=== PATIENT | male | born 1995 | race Caucasian/White ===

== ENCOUNTER 2022-01-18 09:57 | Emergency (ER) | payer OTHER, SELFPAY ==
[2022-01-18 09:58] VITALS: BP 165/104; PULSE 87; RESP 16; TEMP 36.6; O2SAT 100; BMI 34.9
--- NOTE | 2022-01-18 10:05 | EDS_ITS ---
HPI <Dr. Zeina Burns MD - Last Filed: 01/18/22 11:25> History of Present Illness Chief Complaint: Flank Pain <JULIA RIZZO - Last Filed: 01/18/22 11:22> History of Present Illness Detail of Chief Complaint: Left flank pain Informant: patient Onset/Context/Timing Onset: Today Context: Sudden Onset Timing: Continuous Quality: Stabbing knife sensation Current Severity: 6/10 Relieved by: Movement Narrative Narrative: Patient presents secondary to left flank pain that began at 6:45 this morning when he awoke. Patient describes pain as dull stabbing knife with occasional sharp shooting pain. Patient states no prior similar symptoms. Patient has Lidoderm patch on currently, and patient has taken Esdras back and body at 8 AM this morning. Patient denies relief from this. Patient states he last urinated this morning, without change in urine color, dysuria, frequency. Patient states last bowel movement yesterday. Patient denies any recent illness. Patient states pain somewhat improved with movement. Prior similar symptoms: No Recent Illness/Hospitalization: No PFSH <Dr. Zeina Burns MD - Last Filed: 01/18/22 11:25> PFSH Medical History (Updated 01/18/22 @ 11:[address] Zeina Burns MD) Kidney stone Medical History no medical history Home Medications hydrocodone-acetaminophen 1 tab PO Q6H PRN 3 Days #10 tab 01/18/22 [Rx Last Taken Unknown] naproxen [Naprosyn] 500 mg PO BID PRN #20 tab 01/18/22 [Rx Last Taken Unknown] ondansetron 4 mg PO Q8H PRN #10 tab 01/18/22 [Rx Last Taken Unknown] Allergy/AdvReac Type Severity Reaction Status Date / Time No Known Allergies Allergy Verified 01/18/22 10:00 Surgical History History of excision of pilonidal cyst Social History (Updated 01/18/22 @ 10:26 by JULIA RIZZO) Smoking Status: Former smoker alcohol intake: current alcohol intake frequency: holidays/special occasions only substance use type: does not use <JULIA RIZZO - Last Filed: 01/18/22 11:22> PFSH no medical history <JULIA RIZZO - Last Filed: 01/18/22 11:22> ROS ED Constitutional Constitutional ED: Denies chills or fever(s) Eyes Eyes: Denies blurry vision, change in vision or diplopia ENT ENT ED: Denies rhinorrhea or sore throat Cardiovascular Cardiovascular: Denies chest pain or palpitations Respiratory/Chest Respiratory/Chest: Denies cough, dyspnea or dyspnea on exertion Gastrointestinal Gastrointestinal: Reports abdominal pain; Denies constipation, diarrhea, nausea or vomiting Genitourinary Genitourinary ED: Reports as per HPI and flank pain Musculoskeletal Musculoskeletal: Denies myalgias Integumentary Denies rash Neurologic Neurologic: Denies headache(s) or weakness Psychiatric Psychiatric: Denies anxiety or depression Endocrine Endocrinology: Denies polyuria EXAM <Dr. Zeina Burns MD - Last Filed: 01/18/22 11:25> Physical Exam Const Vital Signs: 01/18/22 09:58 Temperature 97.9 F Temperature Source Temporal Pulse Rate 87 Respiratory Rate 16 Blood Pressure 165/104 H Blood Pressure Mean 124 Pulse Ox 100 Oxygen Delivery Method Room Air < SO - Last Filed: 01/18/22 11:22> Physical Exam Const Vital Signs: 01/18/22 09:58 Temperature 97.9 F Temperature Source Temporal Pulse Rate 87 Respiratory Rate 16 Blood Pressure 165/104 H Blood Pressure Mean 124 Pulse Ox 100 Oxygen Delivery Method Room Air Positive well nourished and well developed General Appearance ED: well developed HEENT Reports moist mucous membranes Eyes PERRL and EOMs intact bilaterally Neck no lymphadenopathy and supple Resp normal respiratory effort and clear to auscultation bilaterally Cardio regular rate and regular rhythm GI normal to inspection, nondistended, normoactive bowel sounds Back/Spine no CVA tenderness Extremity normal to inspection General Extremety ED: Negative for edema General Extremity: Negative for edema Neuro oriented x3 Sensorium / Orientation: alert Psych mental status grossly normal Skin No no rashes or lesions noted MDM <Dr. Zeina Burns MD - Last Filed: 01/18/22 11:25> [facility] Lab Data Labs: Laboratory Results - last 24 hr 01/18/22 01/18/22 01/18/22 10:23 10:25 10:25 WBC 10.7 RBC 5.30 Hgb 16.0 Hct 45.5 MCV 85.8 MCH 30.2 MCHC 35.2 RDW Std Deviation 37.8 RDW Coeff of [place] 12.0 Plt Count 270 MPV 9.7 Immature Gran % (Auto) 0.700 Neut % (Auto) 80.3 H Lymph % (Auto) 12.9 L [place] % (Auto) 5.2 Eos % (Auto) 0.3 Baso % (Auto) 0.6 Absolute Neuts (auto) 8.6 H Absolute Lymphs (auto) 1.38 Nucleated RBC % 0 Sodium 139 Potassium 3.9 Chloride 109 H Carbon Dioxide 26.0 Anion Gap 4 L BUN 14 Creatinine 1.09 Estim Creat Clear Calc 120.59 Est GFR (MDRD) Af Amer 103 Est GFR (MDRD) Non-Af 85 BUN/Creatinine Ratio 12.8 Glucose 116 H Calcium 9.5 Urine Color Yellow Urine Clarity Sl. Cloudy Urine pH 7.0 Ur Specific [place] 1.010 Urine Protein 30 H Urine Glucose (UA) Normal Urine Ketones 5 H Urine Occult Blood 250 H Urine Nitrite Negative Urine Bilirubin Negative Urine Urobilinogen 1 H Ur Leukocyte Esterase 25 H Urine RBC > 100 SEEN Urine WBC 0 SEEN Ur Squamous Epith Cells 0 SEEN Urine Bacteria 0 SEEN Urine Mucus 0 SEEN Radiography Diagnostic Testing: Clinical Impression(s) from Imaging Studies Abdomen/Pelvis CT 01/18/22 10:14 IMPRESSION: Punctate 1 to 2 mm calcification in the distal left ureter causing mild left hydronephrosis and hydroureter with minimal amount of periureteral inflammatory stranding No free intraperitoneal fluid, air, or suspicious adenopathy, normal appendix visualized Electronically Signed: John Stubbs MD at 11:11 EST Reading Location ID and State: [facility] / [place] , Service support , Treatment and Re-Evaluation Narrative: Patient seen and evaluated with [employer] student. I personally interviewed and examined the patient. I was involved in all aspects of decision making and treatment. Patient presents with left flank pain that started at 645 this morning upon waking. He felt well when he went to bed last evening. He had mild nausea this morning with pain. No dysuria or hematuria. No known history of kidney stone. Denies any recent back injury. Patient sitting upright in bed no acute distress. Head and neck examination unremarkable. Heart is regular rate and rhythm. Lung sounds are clear. Abdomen is soft and nontender. Hypoactive bowel sounds noted. Back examination reveals no CVA tenderness. Lab work obtained and largely unremarkable. Renal function normal. Urinalysis does reveal blood with no sign of infection. CT flank reveals a 1 to 2 mm left distal ureter stone. After analgesics patient's pain is significantly improved. Test results discussed with him as well as anticipated course. He is given prescriptions for [place], Naprosyn, Zofran. He is encouraged to increase p.o. fluids and follow-up with urology if not improving. Return instructions provided. <JULIA RIZZO - Last Filed: 01/18/22 11:22> MDM MDM Narrative Medical decision making narrative: CBC, BMP, urinalysis, and non-contrast abdomen pelvis CT obtained. Patient treated for pain with morphine and Toradol, also given Zofran. Lab Data Attestation: I reviewed the patient's lab results. Labs: Laboratory Results - last 24 hr 01/18/22 01/18/22 01/18/22 10:23 10:25 10:25 WBC 10.7 RBC 5.30 Hgb 16.0 Hct 45.5 MCV 85.8 MCH 30.2 MCHC 35.2 RDW Std Deviation 37.8 RDW Coeff of [place] 12.0 Plt Count 270 MPV 9.7 Immature Gran % (Auto) 0.700 Neut % (Auto) 80.3 H Lymph % (Auto) 12.9 L [place] % (Auto) 5.2 Eos % (Auto) 0.3 Baso % (Auto) 0.6 Absolute Neuts (auto) 8.6 H Absolute Lymphs (auto) 1.38 Nucleated RBC % 0 Sodium 139 Potassium 3.9 Chloride 109 H Carbon Dioxide 26.0 Anion Gap 4 L BUN 14 Creatinine 1.09 Estim Creat Clear Calc 120.59 Est GFR (MDRD) Af Amer 103 Est GFR (MDRD) Non-Af 85 BUN/Creatinine Ratio 12.8 Glucose 116 H Calcium 9.5 Urine Color Yellow Urine Clarity Sl. Cloudy Urine pH 7.0 Ur Specific [place] 1.010 Urine Protein 30 H Urine Glucose (UA) Normal Urine Ketones 5 H Urine Occult Blood 250 H Urine Nitrite Negative Urine Bilirubin Negative Urine Urobilinogen 1 H Ur Leukocyte Esterase 25 H Urine RBC > 100 SEEN Urine WBC 0 SEEN Ur Squamous Epith Cells 0 SEEN Urine Bacteria 0 SEEN Urine Mucus 0 SEEN Radiography Diagnostic Testing: Clinical Impression(s) from Imaging Studies Abdomen/Pelvis CT 01/18/22 10:14 IMPRESSION: Punctate 1 to 2 mm calcification in the distal left ureter causing mild left hydronephrosis and hydroureter with minimal amount of periureteral inflammatory stranding No free intraperitoneal fluid, air, or suspicious adenopathy, normal appendix visualized Electronically Signed: John Stubbs MD at 11:11 EST , Treatment and Re-Evaluation Narrative: CBC and BMP unremarkable. Urinalysis positive for blood with no sign of infection. CT demonstrates 1 to 2 mm calcification in the distal left ureter. On reevaluation, patient states pain is 4 out of 10 and continuing to decrease, and appears more comfortable. Patient will be given prescriptions for pain control for home. Patient aware to increase hydration and follow-up with urology if needed. Discharge Plan Triage Chief Complaint: Flank Pain Other Complaint: Abd Pain ED Provider: Zeina Burns Dx/Rx/DC Orders Clinical Impression: Kidney stone Instructions: ED Kidney Stone w/ Colic Prescriptions: New naproxen [Naprosyn] 500 mg tablet 500 mg PO BID PRN (Reason: pain) Qty: 20 RF: 0 ondansetron 4 mg tablet,disintegrating 4 mg PO Q8H PRN (Reason: nausea and vomiting) Qty: 10 RF: 0 hydrocodone-acetaminophen 5-325 mg tablet 1 tab PO Q6H PRN (Reason: pain) 3 Days Qty: 10 RF: 0 Stand Alone Forms: ED Work / School Excuse Primary Care Provider: Care Physician,No Primary Referrals: Wayne Tilley MD [STAFF PHYSICIAN] - As Needed Care Physician,No Primary [Primary Care Provider] - Disposition Disposition: Home, Self Care
--- NOTE | 2022-01-18 10:14 | CT_ITS ---
STUDY: CT ABDOMEN AND PELVIS WITHOUT CONTRAST REASON FOR EXAM: Male, 26 years old. lt flank pain RADIATION DOSAGE (If Supplied By Facility): CTDIvol = ( 22.22 ) mGy, DLP = ( 1288.21 ) mGycm TECHNIQUE: Transaxial images were obtained from the dome of the diaphragm to the symphysis pubis without oral contrast, and without intravenous contrast. Sagittal and coronal images were reconstructed. Individualized dose optimization techniques were used for this CT. COMPARISON: None. FINDINGS: The visualized lung bases are unremarkable. The visualized portions of the heart are within normal limits. Normal liver. Normal gallbladder and extrahepatic biliary system. Normal spleen. Normal pancreas. Normal bilateral adrenal glands. Normal right kidney. Left kidney shows mild hydronephrosis and hydroureter. There is a minimal amount of periureteral inflammatory stranding. Findings due to a 1 to 2 mm stone seen on axial image 174, and coronal recon image 81. Normal visualized stomach. Normal small intestine. Normal colon. The appendix is visualized and appears normal. Appendix seen on coronal recon images 58-67 Normal abdominal aorta. Normal inferior vena cava. Normal retroperitoneum. Normal urinary bladder. Normal abdominal wall. Normal osseous structures. CT/Abdomen/Pelvis without Cont IMPRESSION: Punctate 1 to 2 mm calcification in the distal left ureter causing mild left hydronephrosis and hydroureter with minimal amount of periureteral inflammatory stranding No free intraperitoneal fluid, air, or suspicious adenopathy, normal appendix visualized Electronically Signed: John Stubbs MD at 11:11 EST ,
[2022-01-18] MEDS: 0.9% Normal Saline 1,000 ML 250 ML IV (10:29)
[2022-01-18] MEDS: Morphine 4 MG/ML Syringe IV (10:29)
[2022-01-18] MEDS: Ketorolac 30 MG/ML Syringe IV (10:29)
[2022-01-18] MEDS: Ondansetron 4 MG/2 ML Vial IV (10:29)
[2022-01-18 10:40] LABS: Bacteria 0 SEEN /hpf (None Seen); Mucous, Urine 0 SEEN /hpf (<or=2+); Squamous Epithelial Cells - UA 0 SEEN /hpf (0-5); White Blood Cells 0 SEEN /hpf (0-5)
[2022-01-18 10:42] LABS: Absolute Lymphocyte Count 1.38 X10^3/uL (0.83-4.51); Absolute Neutrophil Count 8.6 X10^3/uL (2.0-7.7); Basophil# 0.06 X10^3/uL; Basophil% 0.6 % (0-1); Eosinophil# 0.03 X10^3/uL; Eosinophils% 0.3 % (0-5); Hematocrit 45.5 % (40-54); Lymphocyte # 1.38 X10^3/ul (0.83-4.51); Lymphocyte % 12.9 % (19-41); Mean Corp Hgb Conc 35.2 g/dL (32-36); Mean Corpuscular Hgb 30.2 pg (27.0-32.0); Mean Corpuscular Volume 85.8 fL (80-94); Mean Platelet Vol. 9.7 fl (6.2-12.0); Monocyte# 0.56 X10^3/uL; Monocyte% 5.2 % (0-10); NRBC Flagged by Analyzer 0 % (0-5); Neutrophil # 8.58 X10^3/uL (2.7-7.7); Neutrophil % 80.3 % (47-70); Platelet Count 270 K/mm3 (150-450); RBC Distribution Width SD 37.8 fl (35.1-43.9); White Blood Count 10.7 K/mm3 (4.4-11.0)
[2022-01-18 10:42] LABS: Color, Urine Yellow (Yellow); Glucose, Dipstick Normal (Normal); Ketone-Dipstick 5 mg/dl (Negative); Leukocyte Esterase-Dipstick 25 /ul (Negative); Nitrite-Dipstick Negative (Negative); Occult Blood-Urine 250 /ul (Negative); Protein-Dipstick 30 mg/dl (Negative); Urine Bilirubin Dipstick Negative (Negative); Urine Clarity Sl. Cloudy (Clear); Urine Urobilinogen 1 mg/dl (Normal)
[2022-01-18 10:50] LABS: Red Blood Cells-Urine > 100 SEEN /hpf (0-5)
[2022-01-18 10:58] LABS: Anion Gap 4 (5-15); BUN 14 mg/dL (7-18); BUN/Creat Ratio 12.8 RATIO (10-20); Calcium,Total 9.5 mg/dL (8.5-10.1); Chloride 109 mmol/L (98-107); Creatinine, Serum 1.09 mg/dL (0.70-1.30); EST Glomerular Filtration Rate 85 mL/min (>60); Est Glom Filt Rate - Afr Amer 103 mL/min (>60); Estimated Creatinine Clearance 120.59 ml/min; Glucose 116 mg/dL (74-106); Potassium 3.9 mmol/L (3.5-5.1); Sodium Level 139 mmol/L (136-145)
== END 2022-01-18 11:26 | disposition home or self-care (01) ==
PROVIDERS: Emergency Provider Emergency Medicine; Visit Provider Emergency Medicine
DX: N20.0 Calculus of kidney (principal); Z87.891 Personal history of nicotine dependence
CPT/HCPCS: 74176; 80048; 81001; 85025; 96374; 96375; 99282; J7030; A4216; J2405

== ENCOUNTER 2024-07-20 08:20 | Observation (INO) | payer OTHER, SELFPAY ==
[2024-07-20 08:20] VITALS: BP 196/114; PULSE 92; RESP 16; TEMP 36.2; O2SAT 100; BMI 40.8
--- NOTE | 2024-07-20 08:36 | CT_ITS ---
STUDY: CT ABDOMEN AND PELVIS WITHOUT CONTRAST REASON FOR EXAM: Male, 28 years old. Flank pain RADIATION DOSAGE (If Supplied By Facility): CTDIvol = ( 23.94 ) mGy, DLP = ( 1411.89 ) mGycm TECHNIQUE: Transaxial images were obtained from the dome of the diaphragm to the symphysis pubis without oral contrast, and without intravenous contrast. Sagittal and coronal images were reconstructed. Individualized dose optimization techniques were used for this CT. COMPARISON: 01/18/2022 FINDINGS: The visualized lung bases are unremarkable. The visualized portions of the heart are within normal limits. There is decreased attenuation of the liver consistent with steatosis. Normal gallbladder and extrahepatic biliary system. Normal spleen. Normal pancreas. Normal bilateral adrenal glands. Normal left kidney. Right kidney shows hydronephrosis and hydroureter with perinephric and periureteral inflammatory stranding. There is a 2 mm stone noted in the distal right ureter on axial image 179 series 2 and coronal reconstructed image 90 likely responsible for the above findings. Neither kidney shows a suspicious solid renal lesion. Normal visualized stomach. Normal small intestine. Normal colon. The appendix is visualized and appears normal. Appendix seen on coronal recon images 57 through 70. Normal abdominal aorta. Normal inferior vena cava. Normal retroperitoneum. Normal urinary bladder. Normal abdominal wall. Normal osseous structures. CT/Abdomen/Pelvis without Cont IMPRESSION: 2 mm calcification in the distal right ureter likely causing right hydronephrosis and hydroureter with perinephric and periureteral inflammatory stranding. Fatty liver, no discrete lesion No free intraperitoneal fluid, air, or suspicious adenopathy, normal appendix visualized Electronically Signed: John Stubbs MD at 9:39 EDT ,
[2024-07-20] MEDS: Ondansetron 4 MG/2 ML Vial IV (08:42)
[2024-07-20] MEDS: Morphine 4 MG/ML Syringe IV (08:42)
[2024-07-20] MEDS: Ketorolac 15 MG/ML Vial IV ×2 (08:43→12:02)
[2024-07-20] MEDS: 0.9% Normal Saline (1000mL) 1,000 ML 250 ML IV (08:46)
[2024-07-20 09:10] LABS: Anion Gap 6 (5-15); BUN 12 mg/dL (7-18); BUN/Creat Ratio 11.5 RATIO (10-20); Calcium,Total 9.6 mg/dL (8.5-10.1); Chloride 110 mmol/L (98-107); Creatinine, Serum 1.04 mg/dL (0.70-1.30); EST Glomerular Filtration Rate 89 mL/min (>60); Est Glom Filt Rate - Afr Amer 107 mL/min (>60); Estimated Creatinine Clearance 161.72 ml/min; Glucose 134 mg/dL (74-106); Potassium 3.9 mmol/L (3.5-5.1); Sodium Level 139 mmol/L (136-145)
--- NOTE | 2024-07-20 09:10 | EX.ED.DYSGE1 ---
HPI History of Present Illness Chief Complaint: Flank Pain Detail of Chief Complaint: Acute right flank pain Informant: patient Onset/Context/Timing Onset: Today Context: Sudden Onset Timing: Continuous and Waxes and wanes Quality: Colicky severe right flank pain Location: Right Current Severity: Severe Maximum Severity: Severe Worsened by: Nothing Relieved by: Nothing Associated Symptoms Associated Symptoms: Diaphoresis, nausea and vomiting Narrative Narrative: Patient is a 28-year-old male. He has a remote history of prior ureterolithiasis. He presents with abrupt onset of right flank pain. He denies history of hypertension. He denies fever, chills night sweats. He denies respiratory or cardiac symptoms. He does endorse nausea and vomiting x 2. There is no blood or coffee-ground emesis. Patient denies dysuria, frequency, urgency or hematuria. Patient denies pain radiating anteriorly or to the groin. He denies any scrotal pain. Prior similar symptoms: Yes (Prior stone) Recent Illness/Hospitalization: No PFSH [facility] Medical History Kidney stone Home Medications ?Medication ?Instructions ?Recorded ?Last Taken ?Type ikiivemjizwph-ofdghtaukooqe-hnpslywwszs 2 tab PO Q6H 07/20/24 07/19/24 History 5 mg-325 mg-200 mg tablet (Cold Head Congestion Severe Daytime) Allergy/AdvReac Type Severity Reaction Status Date / Time No Known Allergies Allergy Verified 07/20/24 08:22 Surgical History History of excision of pilonidal cyst Social History (Updated 07/20/24 @ 09:[address] Henry Bojorquez MD) household members: spouse Smoking Status: Former smoker alcohol intake: current alcohol intake frequency: holidays/special occasions only substance use type: does not use ROS ROS ED Constitutional Constitutional ED: Denies chills, fever(s) or subjective Cardiovascular Cardiovascular: Denies chest pain, palpitations or racing heartbeat Respiratory/Chest Respiratory/Chest: Denies cough, dyspnea or dyspnea on exertion Gastrointestinal Gastrointestinal: Reports nausea and vomiting; Denies abdominal pain or diarrhea Genitourinary Genitourinary ED: Denies dysuria, hematuria or urinary frequency Musculoskeletal Musculoskeletal: Reports back pain; Denies arthralgias, myalgias or neck pain Integumentary Denies rash Hematologic/Lymphatic Hematologic/Lymphatic: Reports systems reviewed and no addt'l complaints, except as documented EXAM Physical Exam Const Vital Signs: 07/20/24 08:20 07/20/24 09:33 Temperature 97.1 F L Temperature Source Temporal Pulse Rate 92 Respiratory Rate 16 Blood Pressure 196/114 H 167/92 H Blood Pressure Mean 141 117 Pulse Ox 100 Oxygen Delivery Method Room Air Positive well nourished and well developed Constitutional Narrative: Patient is obvious discomfort. He is diaphoretic and pacing in the room. General Appearance ED: well developed; Negative for NAD or pallor HEENT Reports moist mucous membranes HEENT Narrative: Head is atraumatic normocephalic. Ears normal. Nares patent. Eyes PERRL and EOMs intact bilaterally General Eye ED: Negative for pale conjunctiva or scleral icterus Neck no lymphadenopathy, supple and no JVD Resp normal respiratory effort and clear to auscultation bilaterally Cardio regular rate, regular rhythm, S1 normal heart sound, S2 normal heart sound and no murmurs GI normal to inspection, nondistended, normoactive bowel sounds, non-tender, non-distended and no masses; Negative for hepatosplenomegaly Back/Spine General Back: CVA tenderness right Extremity normal to inspection Neuro oriented x3 and CN's II-XII intact bilaterally Sensorium / Orientation: alert Psych mental status grossly normal Skin no rashes or lesions noted, no wounds and skin turgor normal General Skin Exam: elasticity normal; Negative for jaundice or pallor MDM MDM MDM Narrative Medical decision making narrative: Differential diagnosis would include biliary disease, flank pain of unknown etiology, pyelonephritis, obstructing ureteral stone and atypical presentation for abdominal aortic aneurysm or dissection. Workup included appropriate labs, UA and CT of the abdomen pelvis without contrast. Patient was medicated with ketorolac, morphine and Zofran for his nausea and vomiting. History & Record Review Additional record(s) reviewed:: Prior ED visit (Last seen in the emergency room 2014 for scalp wound.) Lab Data Labs: Laboratory Results - last 24 hr 07/20/24 07/20/24 08:50 10:25 WBC 8.4 RBC 4.99 Hgb 14.5 Hct 42.3 MCV 84.8 MCH 29.1 MCHC 34.3 RDW Std Deviation 37.9 RDW Coeff of [place] 12.4 Plt Count 236 MPV 10.0 Immature Gran % (Auto) 0.700 Neut % (Auto) 64.7 Lymph % (Auto) 22.8 [place] % (Auto) 10.0 Eos % (Auto) 1.1 Baso % (Auto) 0.7 Absolute Neuts (auto) 5.4 Absolute Lymphs (auto) 1.91 Nucleated RBC % 0 Sodium 139 Potassium 3.9 Chloride 110 H Carbon Dioxide 23.0 Anion Gap 6 BUN 12 Creatinine 1.04 Estim Creat Clear Calc 161.72 Est GFR (MDRD) Af Amer 107 Est GFR (MDRD) Non-Af 89 BUN/Creatinine Ratio 11.5 Glucose 134 H Calcium 9.6 Urine Color Yellow Urine Clarity Clear Urine pH 6.0 Ur Specific [place] 1.020 Urine Protein 30 H Urine Glucose (UA) Normal Urine Ketones 5 H Urine Occult Blood 250 H Urine Nitrite Negative Urine Bilirubin Negative Urine Urobilinogen 1 H Ur Leukocyte Esterase 25 H Urine RBC 25-50 SEEN Urine WBC 0-5 SEEN Ur Squamous Epith Cells 0-5 SEEN Urine Bacteria 1+ Urine Mucus 2+ Radiography Diagnostic Testing: Clinical Impression(s) from Imaging Studies Abdomen/Pelvis CT 07/20/24 08:36 IMPRESSION: 2 mm calcification in the distal right ureter likely causing right hydronephrosis and hydroureter with perinephric and periureteral inflammatory stranding. Fatty liver, no discrete lesion No free intraperitoneal fluid, air, or suspicious adenopathy, normal appendix visualized Electronically Signed: John Stubbs MD at 9:39 EDT Reading Location ID and State: [address] [place] [address] , Service support , Management Discussion w/another healthcare provider: [employer]st (Spoke with urology. Admit to urology service. Floor to call for orders.) Treatment and Re-Evaluation :: Patient was reassessed after he received Dilaudid. States there was no improvement. He was then reassessed at 1020. Pain has improved. He still feels uncomfortable. Will reassess in 30 minutes. To this point patient has received 15 mg of ketorolac, 10 of morphine and 0.5 of Dilaudid. I was informed at 1027 that patient's pain is severe again. Additional Dilaudid was ordered. Dr. Tilley has been paged for admission. Discharge Plan Dx/Rx/DC Orders Clinical Impression: Hydronephrosis with urinary obstruction due to ureteral calculus, Acute right flank pain, Nausea & vomiting, Elevated blood-pressure reading, without diagnosis of hypertension, Hematuria, Asymptomatic bacteriuria Disposition Disposition: Acute Care [facility]
[2024-07-20] MEDS: morphine 8 MG/ML Syringe 6 MG IV (09:21)
[2024-07-20 09:33] VITALS: BP 167/92
[2024-07-20 09:37] LABS: Absolute Lymphocyte Count 1.91 X10^3/uL (0.83-4.51); Absolute Neutrophil Count 5.4 X10^3/uL (2.0-7.7); Basophil# 0.06 X10^3/uL; Basophil% 0.7 % (0-1); Eosinophil# 0.09 X10^3/uL; Eosinophils% 1.1 % (0-5); Hematocrit 42.3 % (40-54); Hemoglobin 14.5 g/dL (13.0-16.5); Lymphocyte # 1.91 X10^3/ul (0.83-4.51); Lymphocyte % 22.8 % (19-41); Mean Corp Hgb Conc 34.3 g/dL (32-36); Mean Corpuscular Hgb 29.1 pg (27.0-32.0); Mean Corpuscular Volume 84.8 fL (80-94); Monocyte# 0.84 X10^3/uL; NRBC Flagged by Analyzer 0 % (0-5); Neutrophil # 5.43 X10^3/uL (2.7-7.7); Neutrophil % 64.7 % (47-70); Platelet Count 236 K/mm3 (150-450); RBC Distribution Width CV 12.4 % (11.6-14.6); RBC Distribution Width SD 37.9 fl (35.1-43.9); Red Blood Count 4.99 M/mm3 (4.6-6.2); White Blood Count 8.4 K/mm3 (4.4-11.0)
[2024-07-20] MEDS: HYDROmorphone 0.5 MG/0.5 ML SYRINGE IV (09:55)
[2024-07-20 10:20] VITALS: BP 131/78; PULSE 64; RESP 18; TEMP 36.6; O2SAT 98
[2024-07-20] MEDS: HYDROmorphone 1 MG/ML Syringe IV (10:32)
[2024-07-20 10:33] LABS: Color, Urine Yellow (Yellow); Glucose, Dipstick Normal (Normal); Ketone-Dipstick 5 mg/dl (Negative); Leukocyte Esterase-Dipstick 25 /ul (Negative); Nitrite-Dipstick Negative (Negative); Occult Blood-Urine 250 /ul (Negative); Protein-Dipstick 30 mg/dl (Negative); Urine Bilirubin Dipstick Negative (Negative); Urine Clarity Clear (Clear); Urine Urobilinogen 1 mg/dl (Normal)
[2024-07-20 10:39] LABS: Bacteria 1+ /hpf (None Seen); Mucous, Urine 2+ /hpf (<or=2+); Red Blood Cells-Urine 25-50 SEEN /hpf (0-5); Squamous Epithelial Cells - UA 0-5 SEEN /hpf (0-5); White Blood Cells 0-5 SEEN /hpf (0-5)
--- NOTE | 2024-07-20 10:43 | HP.PCM_ITS ---
HPI - General General Date of Service: 07/20/24 Chief Complaint: Small distal right ureteral calculi HPI Narrative BHARGAV MABRY, is a 28 M who presents intractable pain. Tiny stone in the distal right ureter ER doctors give the patient many medications the pain can never be resolved his get a tiny stone in distal ureter very likely can a pass is no surgical inventions probably can be necessary will admit the patient for pain control. [facility] Medical History Kidney stone Home Medications ?Medication ?Instructions ?Recorded ?Last Taken ?Type gltqbwgrbjofc-[id number]-[id number] 2 tab PO Q6H 07/20/24 07/19/24 History 5 mg-325 mg-200 mg tablet (Cold Head Congestion Severe Daytime) Allergy/AdvReac Type Severity Reaction Status Date / Time No Known Allergies Allergy Verified 07/20/24 08:22 Surgical History History of excision of pilonidal cyst Social History household members: spouse Smoking Status: Former smoker alcohol intake: current alcohol intake frequency: holidays/special occasions only substance use type: does not use ROS Constitutional Constitutional: Denies chills, fever(s) or malaise Eyes Eyes: Denies blurry vision or change in vision ENT HEENT: Reports none Cardiovascular Cardiovascular: Denies chest pain or palpitations Respiratory/Chest Respiratory/Chest: Denies cough or shortness of breath with exertion Gastrointestinal Gastrointestinal: Denies abdominal pain, constipation or diarrhea Musculoskeletal Musculoskeletal: Denies back pain, joint stiffness or joint swelling Integumentary Integumentary: Denies dry skin, jaundice, lesions or rash Neurologic Neurologic: Denies confusion, syncope or weakness Psychiatric Psychiatric: Reports none; Denies anxiety or depression Endocrine Endocrinology: Denies excessive sweating, fatigue or flushing Hematologic/Lymphatic Hematologic/Lymphatic: Denies anemia, easy bleeding or easy bruising Vital Signs Vital Signs Vital Signs: 07/20/24 08:20 07/20/24 09:33 Temperature 97.1 F L Temperature Source Temporal Pulse Rate 92 Respiratory Rate 16 Blood Pressure 196/114 H 167/92 H Blood Pressure Mean 141 117 Pulse Ox 100 Oxygen Delivery Method Room Air Weight Weight: 148.461 kg Body Mass Index (BMI) 40.8 Physical Exam Const alert and oriented x3 General Appearance: cooperative HEENT normocephalic and head/scalp atraumatic Eyes PERRL and EOMs intact bilaterally Neck supple, no JVD and no carotid bruits Resp normal respiratory effort, normal air movement and clear to auscultation bilaterally Cardio regular rate and no murmurs GI normal to inspection, nondistended, normoactive bowel sounds and soft to palpation Extremity normal capillary refill General Extremity: no tenderness to palpation of joints or extremities; Negative for edema Skin no rashes or lesions noted and no wounds General Skin Exam: no breakdown Neuro CN's II-XII intact bilaterally Psych affect normal Appearance: appropriate Results Medical Records Data Attestation: I reviewed the patient's medical records Lab / Micro Data 07/20/24 08:50 07/20/24 08:50 Labs: Laboratory Results - last 24 hr 07/20/24 08:50: WBC 8.4, RBC 4.99, Hgb 14.5, Hct 42.3, MCV 84.8, MCH 29.1, MCHC 34.3, RDW Std Deviation 37.9, RDW Coeff of [place] 12.4, Plt Count 236, MPV 10.0, Immature Gran % (Auto) 0.700, Neut % (Auto) 64.7, Lymph % (Auto) 22.8, [place] % (Auto) 10.0, Eos % (Auto) 1.1, Baso % (Auto) 0.7, Absolute Neuts (auto) 5.4, Absolute Lymphs (auto) 1.91, Nucleated RBC % 0, Sodium 139, Potassium 3.9, C hloride 110 H, Carbon Dioxide 23.0, Anion Gap 6, BUN 12, Creatinine 1.04, Estim Creat Clear Calc 161.72, Est GFR (MDRD) Af Amer 107, Est GFR (MDRD) Non-Af 89, BUN/Creatinine Ratio 11.5, Glucose 134 H, Calcium 9.6 07/20/24 10:25: Urine Color Yellow, Urine Clarity Clear, Urine pH 6.0, Ur Specific [place] 1.020, Urine Protein 30 H, Urine Glucose (UA) Normal, Urine Ketones 5 H, Urine Occult Blood 250 H, Urine Nitrite Negative, Urine Bilirubin Negative, Urine Urobilinogen 1 H, Ur Leukocyte Esterase 25 H, Urine RBC 25-50 SEEN, Urine WBC 0-5 SEEN, Ur Squamous Epith Cells 0-5 SEEN, Urine Bacteria 1+, Urine Mucus 2+ Imaging Radiology Impression Abdomen/Pelvis CT 07/20/24 08:36 IMPRESSION: 2 mm calcification in the distal right ureter likely causing right hydronephrosis and hydroureter with perinephric and periureteral inflammatory stranding. Fatty liver, no discrete lesion No free intraperitoneal fluid, air, or suspicious adenopathy, normal appendix visualized Electronically Signed: John Stubbs MD at 9:39 EDT , Assessment & Plan Assessment/Plan (1) Hydronephrosis with urinary obstruction due to ureteral calculus: (2) Acute right flank pain: PLAN: Very small stone in the distal right ureter is getting very likely can a pass on its own we will bring the patient in just for hydration Flomax expectant management.
--- NOTE | 2024-07-20 10:46 | NURSING ---
MED SURG OBS JOLEEN HYDROEPHROSIS DUE TO OBSTRUCTING RT URETERAL CALCULUS
[2024-07-20 11:12] VITALS: BP 157/86; PULSE 64; RESP 16; TEMP 36.6; O2SAT 99
[2024-07-20 11:45] VITALS: BMI 39.6
[2024-07-20 11:52] VITALS: BP 178/113; PULSE 73; RESP 18; TEMP 36.7; O2SAT 98
[2024-07-20] MEDS: 0.9% Normal Saline (1000mL) 1,000 ML 125 ML IV (11:59)
[2024-07-20] MEDS: oxyCODONE 5 MG Tablet PO (12:01)
[2024-07-20] MEDS: Tamsulosin HCl 0.4 MG Capsule PO (12:43)
[2024-07-20] MEDS: Morphine 2 MG/ML Syringe IV (13:21)
[2024-07-20] MEDS: 0.9% Saline Lock 10 ML Syringe IV (13:22)
[2024-07-20 15:29] VITALS: BP 141/80; PULSE 81
== END 2024-07-20 15:06 | disposition home or self-care (01) ==
LOC: ED 10:28 → PCU 11:04
PROVIDERS: Admitting Provider Urology; Emergency Provider Emergency Medicine; Visit Provider Urology
DX: N13.2 Hydronephrosis with renal and ureteral calculous obstruction (principal); Z87.891 Personal history of nicotine dependence; R03.0 Elevated blood-pressure reading, without diagnosis of hypertension
CPT/HCPCS: 74176; 80048; 81001; 85025; 96361; 96374; 96375; 96376; 97802; 99221; 99283; J7030; A4216; G0378; J2405